=== PATIENT | female | born 1980 | race Two or more races ===

== ENCOUNTER 2018-07-20 11:45 | Outpatient (CLI) | payer OTHER | END 2018-07-20 16:33 | disposition home or self-care (01) | LOC: RX STUDY 11:45 | DX: N93.8 Other specified abnormal uterine and vaginal bleeding (principal); N91.2 Amenorrhea, unspecified; Q50.6 Other congenital malformations of fallopian tube and broad ligament ==

== ENCOUNTER 2019-06-19 11:30 | Inpatient (IN) | payer OTHER ==
[~2019-06-19] VITALS: Ht 172.7 cm; Wt 85.3 kg
== END 2019-07-04 11:13 | DRG 807 ==
LOC: LDR 07-01 22:57 → OB/GYN 07-01 22:57
PROVIDERS: ADMIT Obstetrics & Gynecology
PROC: 4A1HXCZ Monitoring of Products of Conception, Cardiac Rate, External Approach (ICD-10-PCS; 2019-07-01)
PROC: 10E0XZZ Delivery of Products of Conception, External Approach (ICD-10-PCS; principal; 2019-07-02)
PROC: 4A033R1 Measurement of Arterial Saturation, Peripheral, Percutaneous Approach (ICD-10-PCS; 2019-07-02)
DX: O80 Encounter for full-term uncomplicated delivery (principal); Z37.0 Single live birth; Z3A.39 39 weeks gestation of pregnancy

== ENCOUNTER 2019-06-28 11:55 | Outpatient (CLI) | payer OTHER | END 2019-06-28 12:37 | disposition home or self-care (01) | LOC: NST 11:55 | DX: Z34.83 Encounter for supervision of other normal pregnancy, third trimester (principal) ==